=== PATIENT | male | born 1990 | race Caucasian/White ===

== ENCOUNTER 2020-11-17 15:37 | Emergency (ER) | payer OTHER, SELFPAY ==
--- NOTE | ~2020-11-17 | CT_ITS ---
EXAMINATION: CT MAXILLOFACIAL WITHOUT CONTRAST CLINICAL INFORMATION: Left nose pain. Trauma. COMPARISON: None available. TECHNIQUE: Multidetector helical imaging was performed in the axial plane with generation of coronal and sagittal reformatted images. This CT examination was performed using dose optimization techniques as appropriate, variously including the following: *Automated exposure control *Adjustment of mA and/or kV according to patient size (this includes techniques or standardized protocols for targeted exams where dose is matched to indication/reason for exam; i.e. extremities or head) *Use of iterative reconstruction technique DLP: 288 mGy-cm FINDINGS: FRONTAL SINUSES AND DRAINAGE PATHWAYS: The frontal sinuses are clear. The frontoethmoidal recesses are patent. MAXILLARY SINUSES AND DRAINAGE PATHWAYS: The maxillary sinuses are clear. The maxillary ostia and infundibula are patent. ETHMOID SINUSES: The ethmoid air cells are clear. The right fovea ethmoidalis is mildly lower than the left. The ethmoid roofs appear intact. SPHENOID SINUS AND DRAINAGE PATHWAYS: The sphenoid sinus is clear. The sphenoethmoidal recesses are patent. The carotid canals are normally covered by bone. NASAL: Moderately displaced comminuted fracture of the left nasal bone. Mildly displaced fracture of the right nasal bone. Mild mucosal thickening of the anterior nasal passages. Mild leftward nasal septal deviation. Moderate edema/hematoma along the left greater than right aspects of the nose. No discrete fluid collection. No radiopaque foreign bodies. ORBITS: Normal appearance of the osseous orbits. The lamina papyracea are intact. No significant preseptal or retrobulbar edema. Normal appearance of the globes. Normal symmetric appearance of the extraocular musculature. No abnormalities of the intraconal or extraconal adipose tissue. Normal appearance of the optic nerve sheaths. Normal appearance of the lacrimal glands. No orbital fluid collections. No abnormalities of the orbital apices. TEMPOROMANDIBULAR JOINTS: The temporomandibular joints remain well aligned. Normal appearance of the temporomandibular joints. ADDITIONAL RELEVANT FINDINGS: No evidence of maxillofacial bone fractures. The zygomatic arches remain intact. No nasal bone fracture. No evidence of mandibular or maxillary fracture. No significant maxillary/mandibular periapical disease. The visualized mastoid air cells and middle ear cavities remain well aerated. Limited evaluation of the intracranial structures without significant abnormalities. The premaxillary, retromaxillary, pterygopalatine fossa, temporal fossa, and parapharyngeal adipose tissue is maintained. No demonstrated soft tissue abnormalities within the intrinsic tissues of the tongue. Congenital nonunion of the posterior arch of C1. CT/CT facial bones wo con IMPRESSION: Moderately displaced comminuted fracture of the left nasal bone. Mildly displaced fracture of the right nasal bone. Surrounding soft tissue edema/hematoma.
[2020-11-17 15:45] VITALS: BP 124/85; PULSE 101; RESP 18; TEMP 36.2; O2SAT 97; BMI 25.8
[2020-11-17] MEDS: Diphth,Pertus(ACell),Tet Adult 0.5 ML SYRINGE IM (19:38)
--- NOTE | 2020-11-17 21:06 | ED_ITS ---
HPI - General Adult General Chief complaint: Epistaxis Stated complaint: ?Fractured nose Time Seen by Provider: 11/17/20 17:23 Source: patient Mode of arrival: ambulatory Limitations: no limitations History of Present Illness HPI narrative: 30-year-old male presents for an injury to his nose after being hit in the nose with a softball prior to arrival. Patient is not up-to-date on his tetanus. States when it happened there was a lot of nose bleed for about 3 seconds and since then just small amounts. He has not had any nose bleeding for about the past 2 hours. Reports he has broken the left side of his nose in the past. Reports his nasal bones were put back in alignment by a friend sticking a ballpoint pen into his nostril. Patient is not experiencing any pain. Related Data Allergies Allergy/AdvReac Type Severity Reaction Status Date / Time No Known Allergies Allergy Verified 11/17/20 15:44 Review of Systems Constitutional: Constitutional: Denies body ache(s), Denies chills, Denies fatigue, Denies fever(s), Denies headache(s), Denies malaise and Denies weakness Eyes: Eyes: Denies diplopia ENT: Denies vertigo, Denies dizziness, Denies otalgia, Denies headache(s), Denies mouth pain, Denies post nasal drip, Denies sinus pain, Denies sinus pressure, Denies sore throat and Denies throat swelling Comments: Trauma to nose, nosebleeds Cardiovascular: Cardiovascular: Denies chest pain, Denies syncope, Denies leg edema, Denies lightheadedness, Denies Loss of Consciousness, Denies palpitations and Denies dyspnea Respiratory: Respiratory: Denies chest congestion, Denies cough and Denies dyspnea Musculoskeletal: Musculoskeletal: Reports no additional musculoskeletal complaints Neurologic: Denies confusion, Denies vertigo, Denies dizziness, Denies syncope, Denies headache(s) and Denies weakness Psychiatric: Psychiatric: Denies anxiety, Denies confusion and Denies depression Endocrine: Endocrine: Denies fatigue and Denies palpitations Allergic/Immunologic: Allergic/Immunologic: Denies throat swelling PMFSH Social History Social History Advance Directives: No Advance Directives Information Provided: No Physical Exam Vital Signs: Vital Signs: Last Vital Signs Temp 97.1 F 11/17/20 15:45 Pulse 101 H 11/17/20 15:45 Resp 18 11/17/20 15:45 BP 124/85 11/17/20 15:45 Pulse Ox 97 11/17/20 15:45 Body Mass Index 25.8 Const: General: No confusion Nutritional Appearance: well nourished Orientation/consciousness: No confusion Limitations: no limitations HENMT: Other: No tenderness around orbits Head: Yes abrasion, No Corcoran's sign, No palpable skull fracture, No raccoon eyes and No scalp tenderness Ears: hearing grossly normal bilaterally and TM's normal bilaterally General nose exam: Normal nasal mucous membranes and turbinates present, Normal septum present, No nasal discharge present, no epistaxis and Other nasal findings present (Deformity to nose, swelling) Face and sinus: Yes sinuses nontender Eyes: Conjunctivae: conjunctivae normal Pupils: Equal, round and reactive pupils present EOM: EOMs intact bilaterally Neck: Neck: Yes full ROM, Yes no lymphadenopathy and Yes supple Resp: Effort & Inspection: normal respiratory effort and able to speak in complete sentences Auscultation: clear to auscultation bilaterally, no crackles, no rales, no rhonchi and no wheezes Cardio: Rate: regular rate Rhythm: regular rhythm Heart sounds: S1 normal heart sound present and S2 normal heart sound present Skin: Other: Small abrasion to left side of nose Swelling over bridge of nose, ecchymosis under left eye Neuro: General: No confusion Cranial nerves: Yes Equal, round and reactive pupils present Extrem: General: Yes normal to inspection and Yes full ROM Psych: Appearance: grossly normal Affect: normal affect Attitude: cooperative Thought process: Normal thought process present Course Course Course Narrative: A 30-year-old male presents for nose bleed and deformity after being hit in the nose with a softball. On exam, patient has no septal hematoma, no epistasis. Patient has swelling across the bridge of his nose, and more bruising on the left side than the right. Orbital bones appear to be intact. Patient has no concussive symptoms and is well-appearing otherwise. CT facial bones: Moderately displaced comminuted fracture of the left nasal bone. Mildly displaced fracture of the right nasal bone. Surrounding soft tissue edema/hematoma. Counseled ice, Tylenol, follow-up with ENT. Gave ENT phone number. Told patient if he was not able to get in with ENT by the end of the week, he needs to call his PCP for a referral to another medical doctor nuclear medicine because he needs to be seen within the next 5-7 days. Patient verbalized agreement and understanding of plan Discharge Plan Discharge Clinical Impression: Fracture of nasal bone Patient Disposition: Home, Self-Care Instructions: Nasal Fracture (ED) Additional Instructions: Please call ENT doctor Dr Lassiter at [phone] on Wednesday. You need to be seen within 5 days. If they are unable to get an appointment, you must call your primary care physician for a referral to a different ear nose throat doctor. In the meantime, ice your nose. Take Tylenol for pain. You may take 1000 mg of Tylenol every 8 hours not to exceed 3000 mg an 24 hours. Please ice your nose. The most effective way to do this is to put ice on for 10 minutes at a time and 10 minutes off rather than leaving ice on continually. Please do not blow your nose. If you blow your nose it may move the bones. Referrals: Felix Lassiter [Physician] - 2 days Stand Alone Forms: Work/School Release Interventions: ED Discharge Assessment Last Done: 11/17/20 21:33 Discharge Date/Time: 11/17/20 21:35
== END 2020-11-17 21:35 | disposition home or self-care (01) ==
PROVIDERS: Emergency Provider Internal Medicine
DX: S02.2XXA Fracture of nasal bones, initial encounter for closed fracture (principal); S00.91XA Abrasion of unspecified part of head, initial encounter; W21.07XA Struck by softball, initial encounter; Y93.9 Activity, unspecified; Y92.9 Unspecified place or not applicable; Y99.9 Unspecified external cause status
CPT/HCPCS: 70486; 90471; 90715; 99283; 99284